=== PATIENT | female | born 1985 | race Caucasian/White ===

== ENCOUNTER 2016-04-21 07:17 | Observation (INO) ==
[2016-04-21] MEDS ORDERED: 0.9 % Sodium Chloride 1,000 ML IV ONE (07:39)
[2016-04-21] MEDS ORDERED: *HR* Promethazine 25 MG/ML VIAL IV ONE ×2 (07:39→08:44)
--- NOTE | 2016-04-21 07:43 | Emergency Department Note ---
Disposition Clinical Impression: Hypokalemia, gastrointestinal losses Intractable vomiting with nausea Qualifiers: Vomiting type: unspecified Qualified Code(s): R11.2 - Nausea with vomiting, unspecified Disposition: Admitted As Inpatient Condition: Good Referrals: Lyudmila Loyd CNP [Primary Care Provider] - Forms: Work/School Release, ED Satisfaction Letter Abdominal Pain HPI - General Chief Complaint: ED Abdominal Pain Stated Complaint: nausea, vomiting, abdominal pain Time Seen by Provider: 04/21/16 07:31 Source: patient Mode of arrival: private vehicle Limitations: no limitations Nursing Notes Reviewed: Yes Vital Signs Reviewed: Yes - History of Present Illness HPI Narrative: Patient presents to the ED complaining of nausea, vomiting and abdominal pain. Symptoms began 4:30 this morning. States vomiting started first and then the abdominal pain. States she has vomited "too many times to count". Her abdominal pain is periumbilical in location, sharp and cramping in nature and she rates it 8 out of 10. No diarrhea. No fever or chills. No urinary symptoms. No URI symptoms. She was seen here 2 days ago for vomiting and diarrhea. She was diagnosed with gastroenteritis and discharged with Phenergan. She was given IV fluids and Phenergan in the ED. She did not have any abdominal pain at that time. States she was able to eat mashed potatoes yesterday with no problem. [place] fine until she woke up this morning. Tried to take Phenergan this morning but vomited it back up. Last bowel movement was the single episode of diarrhea 2 days ago. She does not have regular menses due to having an IUD. She has no chronic GI conditions. She has had a cholecystectomy. She smokes a pack per day. Denies any alcohol use. Occasionally smokes marijuana but denies any recent use. No recent travel or sick contacts. Pain Scale: 8 - Related Data Home Medications Medication Instructions Recorded Confirmed Lamotrigine [Lamictal] 100 mg PO HS 04/19/16 04/21/16 Omeprazole [PriLOSEC] 40 mg PO DAILY 04/19/16 04/21/16 RisperiDONE [Risperidone] 4 mg PO DAILY 04/19/16 04/21/16 Topiramate [Topamax] 50 mg PO DAILY 04/19/16 04/21/16 TraZODone 150 mg PO HS 04/19/16 04/21/16 Previous Rx's Medication Instructions Recorded Promethazine [Phenergan] 25 mg PO Q6HR PRN #10 tablet 04/19/16 Allergies Allergy/AdvReac Type Severity Reaction Status Date / Time Buspirone [From BuSpar] Allergy See Verified 04/19/16 13:21 Comments clonazepam Allergy See Verified 04/19/16 13:21 Comments hydrocodone Allergy See Verified 04/19/16 13:21 Comments morphine Allergy See Verified 04/19/16 13:21 Comments Constitutional: Denies: fever, chills, weakness, weight change Eyes: Denies: eye pain, eye discharge, vision change ENT ED: Denies: ear pain, throat pain, dental pain, hearing loss, epistaxis, congestion, dysphagia Cardiovascular: Denies: chest pain, palpitations, dyspnea on exertion, edema, syncope Respiratory: Denies: cough, dyspnea, wheezes, hemoptysis, stridor Gastrointestinal: Reports: as per HPI, abdominal pain, nausea, vomiting Genitourinary: Denies: dysuria, frequency, hematuria, discharge Musculoskeletal: Denies: back pain, neck pain, arthralgia, myalgia Integumentary: Denies: rash, abrasion, lesions Neurological: Denies: headache, weakness, numbness, paresthesias, confusion, abnormal gait, vertigo Psychiatric: Denies: anxiety, depression, suicidal thoughts, homicidal thoughts , auditory hallucinations, visual hallucinations Endocrine: Denies: fatigue Hematological/Lymphatic: Denies: easy bleeding, easy bruising Allergic/Immunologic: Denies: facial swelling, urticaria Abdominal Pain PMH - Past Medical History Medical history: Reports: no medical history Female Surgical History: Reports: cholecystectomy, orthopedic, other, other Psychiatric history: Reports: anxiety, bipolar, depression - Social History Smoking status: Current every day smoker Alcohol use: Reports: rarely Drug use: Reports: none Physical Exam - General Limitations: no limitations General appearance: alert, other (actively retching) - Head Head exam: atraumatic, normocephalic, normal inspection - Eye Eye exam: Present: normal appearance, PERRL, EOMI - ENT ENT exam: normal exam, normal oropharynx, mucous membranes moist - Neck Neck exam: Present: normal inspection, full ROM, trachea midline - Chest Chest inspection: Present: normal inspection, symmetric chest wall rise - Respiratory Respiratory exam: Present: normal lung sounds bilaterally - Cardiovascular Cardiovascular exam: Present: regular rate, normal rhythm, normal heart sounds - Abdominal Exam Abdominal exam: Present: soft, tenderness, diminished bowel sounds. Absent: distention, guarding, rebound, rigidity Abdominal tenderness: Present: diffuse, mild - Extremities Exam Extremities exam: Present: normal inspection, full ROM. Absent: tenderness, pedal edema - Back Exam Back exam: Present: normal inspection, full ROM. Absent: tenderness - Neurological Exam Neurological exam: Present: alert, oriented X3 - Psychiatric Psychiatric exam: Present: normal affect, normal mood - Skin Skin exam: Present: warm, dry, intact, normal color Course Course Narrative: Patient presents to the ED with crampy abdominal pain and multiple episodes of vomiting. She was diagnosed with gastroenteritis 2 days ago when she had nausea and vomiting. Abdominal pain is new but started after her vomiting today. Review of records shows she had a mild leukocytosis with left shift and slightly elevated lipase on her last visit. Urinalysis was normal and test was negative. Will give IV fluids and Phenergan and recheck lab work for any new abnormalities or trending changes. I fell it is likely she still has a simple viral gastroenteritis but may consider imaging if there are any new laboratory abnormalities. - Reevaluation(s) Reevaluation #1: The prior leukocytosis has resolved. She is hypokalemic at 2.9, likely from her vomiting. Lipase has increased to 255. Given these findings will obtain CT of the abdomen to evaluate further for pancreatitis or other pathology. She will be given potassium supplementation and continued IV fluids. Reevaluation #2: CT scan shows only a small nonobstructing kidney stone. There are no signs of inflammation or infection. Patient has continued to retch in the ED and has been given additional Phenergan. Given her ketosis and intractable vomiting with hypokalemia she would benefit from a brief observation stay for fluids, emesis control and potassium supplementation. Patient is agreeable to this plan. I have paged the hospitalist on-call, Dr. Viera, and am awaiting callback at this time. Reevaluation #3: Patient has been accepted by Dr. Viera. Vital Signs Temperature 98.3 F 04/21/16 07:19 Pulse Rate 84 04/21/16 07:19 Respiratory Rate 16 04/21/16 07:19 Blood Pressure 140/88 04/21/16 07:19 O2 Sat by Pulse Oximetry 98 04/21/16 07:19 Temperature 98.3 F 04/21/16 07:19 Pulse Rate 64 04/21/16 08:34 Respiratory Rate 16 04/21/16 08:34 Blood Pressure 166/103 04/21/16 08:34 O2 Sat by Pulse Oximetry 100 04/21/16 08:34 Oxygen Delivery Oxygen Delivery Room Air Abdominal Pain - Differential Diagnosis Differential Diagnosis: Likely: abdominal pain non-specific, acute appendicitis , gastroenteritis, pancreatitis. Unlikely: diverticulitis, diverticulosis, , small bowel obstruction - Medical Records Medical records reviewed: Yes I reviewed the patient's medical records. - Lab Data Lab results reviewed: Yes I reviewed the patient's lab results. Result diagrams: 04/21/16 07:55 04/21/16 07:55 Lab Results 04/21/16 04/21/16 04/21/16 Range/Units 07:55 07:55 08:25 WBC 9.0 (4.3-11.1) K/mcL RBC 4.76 (3.82-4.97) M/mcL Hgb 14.2 (11.5-15.4) g/dL Hct 40.8 (35.3-44.9) % MCV 85.7 (83.0-100.0) fL MCH 29.8 (28.0-33.3) pg MCHC 34.8 (31.6-35.5) g/dL RDW 13.1 (11.5-14.5) % Plt Count 219 (140-400) K/mcL MPV 9.9 (9.4-12.4) fL Immature Gran % 0.4 (0-4) % Seg Neutrophils % 80.9 % Lymphocytes % 11.8 % Monocytes % 6.3 % Eosinophils % 0.2 % Basophils % 0.4 % Neutrophils # 7.3 (1.6-8.9) K/mcL Lymphocytes # 1.1 (0.6-4.6) K/mcL Monocytes # 0.6 (0.0-1.3) K/mcL Eosinophils # 0.0 (0.0-0.6) K/mcL Basophils # 0.0 (0.0-0.2) K/mcL Sodium 140 (136-145) mEq/L Potassium 2.9 L D (3.5-4.5) mEq/L Chloride 107 (98-109) mEq/L Carbon Dioxide 20 (19-29) mEq/L BUN 12 (7-20) mg/dL Creatinine 0.92 (0.57-1.11) mg/dL Est GFR ( Amer) > 60 (> 60) Est GFR (Non-Af Amer) > 60 (> 60) BUN/Creatinine Ratio 13 (6-26) Glucose 145 H (70-99) mg/dL Calculated Osmolality 292 (280-300) Calcium 9.3 (8.6-10.8) mg/dL Total Bilirubin 0.6 (0.2-1.2) mg/dL AST 12 (5-34) Units/L ALT 10 (0-55) Units/L Alkaline Phosphatase 96 (38-126) Units/L Serum Total Protein 7.5 (6.0-8.3) g/dL Albumin 4.0 (3.5-5.0) g/dL Globulin 3.5 (2.4-3.5) g/dL Albumin/Globulin Ratio 1.1 (1.1-2.2) Lipase 255 H (8-78) Units/L Urine Color Nelly A (Yellow) Urine Clarity Clear (Clear) Urine pH 5.5 (5.0-8.0) pH Units Ur Specific [place] >= 1.030 H (1.010-1.025) Urine Protein 100 H (Neg-Trace) mg/dL Urine Glucose (UA) Normal (Normal) mg/dL Urine Ketones 40 H (Negative) mg/dL Urine Blood Small H (Negative) Urine Nitrite Negative (Negative) Urine Bilirubin Moderate H (Negative) Urine Urobilinogen Normal (Normal) mg/dL Ur Leukocyte Esterase Negative (Negative) Urine Microscopic RBC 0-3 (0-3) per hpf Urine Microscopic WBC 3-5 H (0-3) per hpf Ur Squamous Epith Cells Moderate H (None-Few) per lpf Urine Bacteria Moderate H (None-Few) per hpf Urine Mucus Moderate H (Few) Ur Culture Indicated? NO (NO) Urine Test (Negative) 04/21/16 Range/Units 08:25 WBC (4.3-11.1) K/mcL RBC (3.82-4.97) M/mcL Hgb (11.5-15.4) g/dL Hct (35.3-44.9) % MCV (83.0-100.0) fL MCH (28.0-33.3) pg MCHC (31.6-35.5) g/dL RDW (11.5-14.5) % Plt Count (140-400) K/mcL MPV (9.4-12.4) fL Immature Gran % (0-4) % Seg Neutrophils % % Lymphocytes % % Monocytes % % Eosinophils % % Basophils % % Neutrophils # (1.6-8.9) K/mcL Lymphocytes # (0.6-4.6) K/mcL Monocytes # (0.0-1.3) K/mcL Eosinophils # (0.0-0.6) K/mcL Basophils # (0.0-0.2) K/mcL Sodium (136-145) mEq/L Potassium (3.5-4.5) mEq/L Chloride (98-109) mEq/L Carbon Dioxide (19-29) mEq/L BUN (7-20) mg/dL Creatinine (0.57-1.11) mg/dL Est GFR ( Amer) (> 60) Est GFR (Non-Af Amer) (> 60) BUN/Creatinine Ratio (6-26) Glucose (70-99) mg/dL Calculated Osmolality (280-300) Calcium (8.6-10.8) mg/dL Total Bilirubin (0.2-1.2) mg/dL AST (5-34) Units/L ALT (0-55) Units/L Alkaline Phosphatase (38-126) Units/L Serum Total Protein (6.0-8.3) g/dL Albumin (3.5-5.0) g/dL Globulin (2.4-3.5) g/dL Albumin/Globulin Ratio (1.1-2.2) Lipase (8-78) Units/L Urine Color (Yellow) Urine Clarity (Clear) Urine pH (5.0-8.0) pH Units Ur Specific [place] (1.010-1.025) Urine Protein (Neg-Trace) mg/dL Urine Glucose (UA) (Normal) mg/dL Urine Ketones (Negative) mg/dL Urine Blood (Negative) Urine Nitrite (Negative) Urine Bilirubin (Negative) Urine Urobilinogen (Normal) mg/dL Ur Leukocyte Esterase (Negative) Urine Microscopic RBC (0-3) per hpf Urine Microscopic WBC (0-3) per hpf Ur Squamous Epith Cells (None-Few) per lpf Urine Bacteria (None-Few) per hpf Urine Mucus (Few) Ur Culture Indicated? (NO) Urine Test Negative (Negative)
[2016-04-21 08:07] LABS: Basophils % 0.4 %; Eosinophils % 0.2 %; Hematocrit 40.8 % (35.3-44.9); Hemoglobin 14.2 g/dL (11.5-15.4); Immature Granulocytes % 0.4 % (0-4); Lymphocytes # 1.1 K/mcL (0.6-4.6); Lymphocytes % 11.8 %; Mean Corpuscular HGB Conc 34.8 g/dL (31.6-35.5); Mean Corpuscular Hemoglobin 29.8 pg (28.0-33.3); Mean Corpuscular Volume 85.7 fL (83.0-100.0); Mean Platelet Volume 9.9 fL (9.4-12.4); Monocytes # 0.6 K/mcL (0.0-1.3); Monocytes % 6.3 %; Neutrophils # 7.3 K/mcL (1.6-8.9); Platelet Count 219 K/mcL (140-400); Red Blood Count 4.76 M/mcL (3.82-4.97); Red Cell Distribution Width 13.1 % (11.5-14.5); Segmented Neutrophils % 80.9 %
[2016-04-21 08:31] LABS: Alanine Aminotransferase 10 Units/L (0-55); Albumin/Globulin Ratio 1.1 (1.1-2.2); Alkaline Phosphatase 96 Units/L (38-126); Aspartate Amino Transferase 12 Units/L (5-34); BUN/Creatinine Ratio 13 (6-26); Bilirubin,Total 0.6 mg/dL (0.2-1.2); Blood Urea Nitrogen 12 mg/dL (7-20); Calcium 9.3 mg/dL (8.6-10.8); Carbon Dioxide 20 mEq/L (19-29); Chloride 107 mEq/L (98-109); Globulin 3.5 g/dL (2.4-3.5); Glucose 145 mg/dL (70-99); Lipase 255 Units/L (8-78); Osmolality,Calculated 292 (280-300); Potassium 2.9 mEq/L (3.5-4.5); Sodium 140 mEq/L (136-145); Total Protein 7.5 g/dL (6.0-8.3); eGFR For African Americans > 60 (> 60); eGFR For Non-African Americans > 60 (> 60)
[2016-04-21 08:36] LABS: Bilirubin,Urine Moderate (Negative); Blood,Urine Small (Negative); Clarity,Urine Clear (Clear); Color,Urine Amber (Yellow); Glucose,Urine (UA) Normal (Normal); Ketones,Urine 40 mg/dL (Negative); Leukocyte Esterase,Urine Negative (Negative); Nitrite,Urine Negative (Negative); PH,Urine 5.5 pH Units (5.0-8.0); Protein,Urine 100 mg/dL (Neg-Trace); Specific Gravity,Urine >= 1.030 (1.010-1.025); Urobilinogen,Urine Normal (Normal)
[2016-04-21] MEDS ORDERED: Potassium Chloride Elixir 20 MEQ/15 ML UDC PO ONE ×2 (08:40→10:57)
[2016-04-21] MEDS ORDERED: 0.9 % Sodium Chloride 1,000 ML IVC SCH ×2 (08:45→10:57)
[2016-04-21 08:48] LABS: Bacteria,Urine Moderate per hpf (None-Few); Mucus,Urine Moderate (Few); RBC,Urine 0-3 per hpf (0-3); Squamous Epithelial Cell,Urine Moderate per lpf (None-Few)
[2016-04-21] MEDS ORDERED: Naloxone 0.4 MG/ML INJ IVP PRN ×2 (09:29→10:57)
[2016-04-21] MEDS ORDERED: Ondansetron 4 MG/2 ML VIAL ONE (11:13)
--- NOTE | 2016-04-21 14:53 | Internal Med History&Physical ---
Date of Encounter: 04/21/16 Time of Encounter: 14:25 Assessment and Plan (1) Viral gastroenteritis Current visit: No Status: Acute She will be given IV fluids and prn anti-emetics. Labs will be rechecked in a.m. (2) Hypokalemia, gastrointestinal losses Current visit: Yes Status: Acute She will be given supplemental potassium. Labs will be rechecked in a.m. Internal Medicine - H&P: HPI Chief complaint: Vomiting and abdominal pain Admitted From: Home Plans for Post Hospital Care: Home History of present illness: Ms. Morris is a 30 year old female who came to emergency room complaining of abdominal pain and vomiting with diarrhea onset April 19. She came to emergency room and was diagnosed with gastroenteritis. She was treated and released. She felt improved for a few hours but then began vomiting at home again. She reports at least 10 episodes of vomiting but no hematemesis. She had no diarrhea or hematochezia or melena. She had a cough productive of yellow sputum. She came back to emergency room was found to have hypokalemia. She was [facility] to [facility] floor for ongoing care needs. She states she has had cholecystectomy. She denies disorders of her liver or exocrine pancreas. She reports no other family members with similar health problems. Past Med Surg Social Fam HX - Past Medical History Medical history: no medical history Psychiatric history: anxiety, bipolar, depression - Past Surgical History Surgical History: cholecystectomy - Social History Smoking Status: Current every day smoker Packs per day: 1 Smokeless Tobacco Status: No Alcohol use: rarely Drug use: none Internal Medicine - H&P: Meds Lamotrigine [Lamictal] 100 mg PO HS 04/19/16 [History] Omeprazole [PriLOSEC] 40 mg PO DAILY 04/19/16 [History] Promethazine [Phenergan] 25 mg PO Q6HR PRN #10 tablet 04/19/16 [Rx] RisperiDONE [Risperidone] 4 mg PO DAILY 04/19/16 [History] Topiramate [Topamax] 50 mg PO DAILY 04/19/16 [History] TraZODone 150 mg PO HS 04/19/16 [History] Allergies Buspirone [From BuSpar] Allergy (Verified 04/19/16 13:21) See Comments clonazepam Allergy (Verified 02/19/17 13:21) See Comments hydrocodone Allergy (Verified 04/19/16 13:21) See Comments morphine Allergy (Verified 04/19/16 13:21) See Comments All Systems PM: A 10-system review of systems was performed and is negative for pertinent findings except as documented above in the HPI. Review of systems: Gen.: She states her weight has been stable the past few months Cardiovascular: She denies MS hypertension heart failure angina DVT or pulmonary embolus Respiratory: She smoked since age 14 to present up to 1-1/2 packs per day. She denies chronic lung disease. GI: As per history of present illness : She has been told she has a kidney stone but it is asymptomatic. She denies other kidney or bladder disorders Neurologic: She denies large distribution strokes or seizures. Endocrine: She denies diabetes or thyroid disease or hyperlipidemia Hematology/oncology: She denies blood disorders cancers or anemia Psychiatric: She has anxiety and depression denies other mental health issues [place] skeletal: She denies arthritis gout or other bone joint or muscle disorders. - Constitutional Vitals: Temp Pulse Resp BP Pulse Ox 97.5 F L 58 18 166/94 100 04/21/16 11:47 04/21/16 11:47 04/21/16 11:47 04/21/16 11:47 04/21/16 12:13 Exam: Gen.: She is well-developed well-nourished female who appears in mild to moderate distress. She denies abdominal discomfort. HEENT: Head is atraumatic and normocephalic. Eyes: EOMI. There is no scleral icterus. Mouth: Mucosa is moist. Neck: Supple and nontender. There is no thyromegaly or adenopathy noted. Heart: Regular without murmurs gallops or ectopics. Lungs: No wheezes or crackles are heard. Abdomen: Bowel sounds are diminished. There is mild to moderate tenderness to mild palpation.. Extremities: There is no cyanosis edema or clubbing noted. Dorsalis pedis and posttibial pulses are 1-2 over 2 bilaterally. Neurologic: Mental status: She is talkative and a good historian. Cranial nerves: Smile is symmetric. Forehead wrinkles bilaterally. Tongue protrudes midline. EOMI. Motor: There is no pronator drift. Cerebellar: Finger to nose is intact bilaterally. Skin: Warm and dry Internal Med - H&P Results - Labs CBC & Chem 7: 04/21/16 07:55 04/21/16 07:55 - VTE Reasons for not Prescribing Prophylaxis: Treatment not Indicated - Low risk for VTE
[2016-04-21] MEDS: 0.45 % Sodium Chloride w/KCl 20 MEQ/1,000 ML MLS IVC SCH ×2 (15:14→22:31)
[2016-04-21] MEDS: *HR* HYDROmorphone (PF) 1 MG/ML SYRINGE IVP PRN ×3 (15:14→23:17)
[2016-04-21] MEDS: *HR* Promethazine 25 MG/ML VIAL IVP PRN ×3 (15:29→23:17)
[2016-04-21] MEDS: Nicotine 21 MG PATCH.TD24 TD SCH (20:22)
[2016-04-22] MEDS: *HR* HYDROmorphone (PF) 1 MG/ML SYRINGE IVP PRN ×5 (04:39→21:22)
[2016-04-22] MEDS: *HR* Promethazine 25 MG/ML VIAL IVP PRN ×5 (04:40→21:22)
[2016-04-22] MEDS: 0.45 % Sodium Chloride w/KCl 20 MEQ/1,000 ML MLS IVC SCH ×3 (06:21→23:00)
[2016-04-22 06:30] LABS: Basophils # 0.1 K/mcL (0.0-0.2); Basophils % 0.8 %; Eosinophils # 0.1 K/mcL (0.0-0.6); Eosinophils % 1.1 %; Hematocrit 35.7 % (35.3-44.9); Hemoglobin 12.6 g/dL (11.5-15.4); Immature Granulocytes % 0.3 % (0-4); Lymphocytes # 1.6 K/mcL (0.6-4.6); Lymphocytes % 24.7 %; Mean Corpuscular HGB Conc 35.3 g/dL (31.6-35.5); Mean Corpuscular Hemoglobin 30.1 pg (28.0-33.3); Mean Corpuscular Volume 85.2 fL (83.0-100.0); Mean Platelet Volume 10.2 fL (9.4-12.4); Monocytes # 0.5 K/mcL (0.0-1.3); Monocytes % 7.1 %; Neutrophils # 4.3 K/mcL (1.6-8.9); Platelet Count 194 K/mcL (140-400); Red Blood Count 4.19 M/mcL (3.82-4.97); Red Cell Distribution Width 12.8 % (11.5-14.5)
[2016-04-22 07:07] LABS: BUN/Creatinine Ratio 9 (6-26); Blood Urea Nitrogen 7 mg/dL (7-20); Calcium 8.5 mg/dL (8.6-10.8); Carbon Dioxide 21 mEq/L (19-29); Chloride 109 mEq/L (98-109); Glucose 83 mg/dL (70-99); Magnesium 1.7 mg/dL (1.6-2.6); Osmolality,Calculated 285 (280-300); Potassium 3.3 mEq/L (3.5-4.5); Sodium 139 mEq/L (136-145); eGFR For African Americans > 60 (> 60); eGFR For Non-African Americans > 60 (> 60)
[2016-04-22] MEDS: Ondansetron 4 MG/2 ML VIAL IVP PRN ×2 (07:39→11:31)
[2016-04-22] MEDS ORDERED: RisperiDONE 1 MG TABLET PO SCH ×2 (09:00→21:00)
[2016-04-22] MEDS ORDERED: Topiramate 25 MG TABLET PO SCH ×2 (09:00→21:00)
[2016-04-22] MEDS ORDERED: Pantoprazole 40 MG VIAL IVP SCH (11:30)
--- NOTE | 2016-04-22 11:30 | Internal Med Progress Note ---
Date of Encounter: 04/22/16 Time of Encounter: 11:20 - Assessment and plan (1) Viral gastroenteritis Current Visit: No Status: Acute Assessment and plan: April 22. Continue IV fluids and prn anti-emetics. Recheck labs in a.m. (2) Hypokalemia, gastrointestinal losses Current Visit: Yes Status: Acute Assessment and plan: April 22. Potassium has improved to 3.3. Continue IV supplementation and recheck labs in a.m. - Subjective Interval history: April 22. She has no new complaints. She states she is still vomiting and has some abdominal discomfort. - Constitutional Vitals: Temp Pulse Resp BP Pulse Ox 98.6 F 54 18 150/82 98 04/22/16 07:57 04/22/16 07:57 04/22/16 07:57 04/22/16 07:57 04/22/16 09:50 Exam: She is resting in bed and appears in minimal discomfort. Her abdomen shows bowel sounds present. There is still tenderness to light palpation. I reviewed her medications and lab results. Internal Medicine: Result - Labs CBC & Chem 7: 04/22/16 05:47 04/22/16 05:47 Labs: Short CBC 04/22/16 Range/Units 05:47 WBC 6.5 (4.3-11.1) K/mcL Hgb 12.6 D (11.5-15.4) g/dL Hct 35.7 (35.3-44.9) % Plt Count 194 (140-400) K/mcL Neutrophils # 4.3 (1.6-8.9) K/mcL BMP 04/22/16 05:47 Sodium 139 Potassium 3.3 L Chloride 109 Carbon Dioxide 21 BUN 7 Creatinine 0.74 Glucose 83 Calcium 8.5 L - VTE Reasons for not Prescribing Prophylaxis: Treatment not Indicated - Low risk for VTE Consult Discharge Plan - Plan Referrals: Lyudmila Loyd CNP [Primary Care Provider] - 1 week
[2016-04-22] MEDS: Nicotine 21 MG PATCH.TD24 TD SCH (16:53)
[2016-04-23] MEDS: *HR* HYDROmorphone (PF) 1 MG/ML SYRINGE IVP PRN ×3 (01:30→09:54)
[2016-04-23] MEDS: *HR* Promethazine 25 MG/ML VIAL IVP PRN ×3 (01:30→09:55)
[2016-04-23 06:21] LABS: Basophils # 0.1 K/mcL (0.0-0.2); Basophils % 0.7 %; Eosinophils # 0.1 K/mcL (0.0-0.6); Hematocrit 35.5 % (35.3-44.9); Hemoglobin 12.8 g/dL (11.5-15.4); Immature Granulocytes % 0.6 % (0-4); Lymphocytes # 1.8 K/mcL (0.6-4.6); Lymphocytes % 25.6 %; Mean Corpuscular HGB Conc 36.1 g/dL (31.6-35.5); Mean Corpuscular Hemoglobin 30.4 pg (28.0-33.3); Mean Corpuscular Volume 84.3 fL (83.0-100.0); Mean Platelet Volume 10.5 fL (9.4-12.4); Monocytes # 0.5 K/mcL (0.0-1.3); Monocytes % 7.7 %; Neutrophils # 4.4 K/mcL (1.6-8.9); Platelet Count 195 K/mcL (140-400); Red Blood Count 4.21 M/mcL (3.82-4.97); Red Cell Distribution Width 12.7 % (11.5-14.5); Segmented Neutrophils % 64.4 %
[2016-04-23 06:42] LABS: BUN/Creatinine Ratio 8 (6-26); Blood Urea Nitrogen 6 mg/dL (7-20); Calcium 8.6 mg/dL (8.6-10.8); Carbon Dioxide 20 mEq/L (19-29); Chloride 106 mEq/L (98-109); Glucose 79 mg/dL (70-99); Lipase 300 Units/L (8-78); Osmolality,Calculated 283 (280-300); Potassium 3.4 mEq/L (3.5-4.5); Sodium 138 mEq/L (136-145); eGFR For African Americans > 60 (> 60); eGFR For Non-African Americans > 60 (> 60)
[2016-04-23 06:50] VITALS: BP 99/61
--- NOTE | 2016-04-23 09:59 | Discharge Summary ---
Date of Encounter: 04/23/16 Time of Encounter: 09:50 - Discharge Diagnosis (1) Viral gastroenteritis Priority: Primary Status: Acute (2) Hypokalemia, gastrointestinal losses Priority: Secondary Status: Acute - Discharge Medications Prescriptions: Promethazine [Phenergan] 25 mg PO Q6HR PRN #10 tablet PRN Reason: Nausea HYDROcodone/Acet 5/325 mg [[place] 5-325 mg] 1 tab PO Q4H PRN #8 tab PRN Reason: Pain Potassium Chloride 10 meq PO BIDWM #6 tab.er.prt Home Medications: Lamotrigine [Lamictal] 100 mg PO HS 04/19/16 [History] Omeprazole [PriLOSEC] 40 mg PO DAILY 04/19/16 [History] RisperiDONE [Risperidone] 4 mg PO DAILY 04/19/16 [History] Topiramate [Topamax] 50 mg PO DAILY 04/19/16 [History] TraZODone 150 mg PO HS 04/19/16 [History] HYDROcodone/Acet 5/325 mg [[place] 5-325 mg] 1 tab PO Q4H PRN #8 tab 04/23/16 [Rx] Potassium Chloride 10 meq PO BIDWM #6 tab.er.prt 04/23/16 [Rx] Promethazine [Phenergan] 25 mg PO Q6HR PRN #10 tablet 04/23/16 [Rx] Allergies/Adverse Reactions: Allergies Buspirone [From BuSpar] Allergy (Verified 04/19/16 13:21) See Comments clonazepam Allergy (Verified 04/19/16 13:21) See Comments hydrocodone Allergy (Verified 04/19/16 13:21) See Comments morphine Allergy (Verified 04/19/16 13:21) See Comments Date of admission: 04/21/16 09:38 Primary care physician: Lyudmila Loyd - Patient Status Disposition: Home, Self-Care Condition: Good Overall status at discharge: patient is progressing back to baseline - Discharge Instructions Follow Up With: Lyudmila Loyd, [employer] [Primary Care Provider] - 1 week - Diet and Activity Activity: resume usual activities as tolerated Diet: advance to your usual diet Hospital course: Ms. Morris is a 30 year old female who came to emergency room complaining of abdominal pain and vomiting with diarrhea onset April 19. She came to emergency room and was diagnosed with gastroenteritis. She was treated and released. She felt improved for a few hours but then began vomiting at home again. She reports at least 10 episodes of vomiting but no hematemesis. She had no diarrhea or hematochezia or melena. She had a cough productive of yellow sputum. She came back to emergency room was found to have hypokalemia. She was [facility] to [facility] for ongoing care needs. Initial orders were written by the emergency room physician. I saw her on April 21 and performed the history and physical. She was given IV fluids and prn anti-emetics. She had gradual improvement in her abdominal pain. She had no vomiting the last 24 hours of hospitalization. She was able to tolerate clear liquids satisfactorily. Supplemental potassium was given and potassium level tanvir to 3.4 on the morning of April 23. When I saw her April 23 she felt stable for discharge home. She will advance her diet at home as tolerated. She will follow with Lyudmila Loyd CNP within 1 week. - Time Spent with Patient Total time spent providing and/or coordinating discharge services: - Constitutional Vitals: Temp Pulse Resp BP Pulse Ox 98.4 F 76 16 99/61 94 L 04/23/16 06:48 04/23/16 06:48 04/23/16 06:48 04/23/16 06:48 04/23/16 06:48 - VTE Reasons for not Prescribing Prophylaxis: Treatment not Indicated - Low risk for VTE
== END 2016-04-23 10:35 | disposition home or self-care (01) ==
LOC: EMEROOPIK 07:17 → INPPIK 07:17
PROVIDERS: ADMIT Internal Medicine; ATTEND Internal Medicine